=== PATIENT | male | born 1985 | race Caucasian/White ===

== ENCOUNTER → 2020-06-14 | Outpatient (CLI) | payer OTHER ==
[~2020-06-14] MED LIST: PROTONIX40 MG PO
[2020-06-14 10:37] LABS: HEMOGLOBIN 14.4 gm/dl (14.0-17.5); RED BLOOD COUNT 4.65 M/UL (4.20-5.50)
[2020-06-14 11:01] LABS: BUN/CREATININE RATIO 9 (0-10)
[2020-06-15 13:09] LABS: T3 UPTAKE 28 % (24-39)
== END ==
LOC: LAB 09:59
PROVIDERS: Registered Nurse Administrator
DX: Z51.81 Encounter for therapeutic drug level monitoring (principal); F31.9 Bipolar disorder, unspecified; Z79.899 Other long term (current) drug therapy
CPT/HCPCS: 36415; 80053; 80061; 80178; 83036; 84439; 84443; 84479; 84481; 85025

== ENCOUNTER 2020-07-28 20:42 | Emergency (ER) | payer OTHER ==
[2020-07-28 23:02] LABS: HEMOGLOBIN 15.1 gm/dl (14.0-17.5); RED BLOOD COUNT 4.82 M/UL (4.20-5.50); WHITE BLOOD COUNT 11.5 K/UL (4.5-11.0)
[2020-07-28 23:15] LABS: BUN/CREATININE RATIO 7 (0-10)
[2020-07-29 14:34] LABS: ACINETOBACTER BAUMANNII Not Detected (Negative); CANDIDA ALBICANS Not Detected (Negative); CANDIDA KRUSEI Not Detected (Negative); CANDIDA TROPICALIS Not Detected (Negative); ENTEROCOCCUS Not Detected (Negative); ESCHERICHIA COLI Not Detected (Negative); HAEMOPHILUS INFLUENZAE Not Detected (Negative); KLEBSIELLA OXYTOCA Not Detected (Negative); KLEBSIELLA PNEUMONIAE Not Detected (Negative); KPC-CARBAPENEM-RESISTANCE GENE Not Detected (Negative); PROTEUS Not Detected (Negative); PSEUDOMONAS AERUGINOSA Not Detected (Negative); SERRATIA MARCESANS Not Detected (Negative); STREP AGALACTIAE (GROUP B) Not Detected (Negative); STREP PYOGENES (GROUP A) Not Detected (Negative); STREPTOCOCCUS Not Detected (Negative); vanA/B (VANCOMYCIN RESIST GENE Not Detected (Negative)
[2020-07-29 15:59] LABS: STAPHYLOCOCCUS DETECTED (Negative); STAPHYLOCOCCUS AUREUS DETECTED (Negative); mecA (METHICILLIN RESIST GENE DETECTED (Negative)
== END 2020-07-29 04:04 | disposition home or self-care (01) ==
LOC: ER1 20:42
PROVIDERS: Physician Assistant
DX: L03.211 Cellulitis of face (principal); K13.0 Diseases of lips; I80.8 Phlebitis and thrombophlebitis of other sites; Z90.49 Acquired absence of other specified parts of digestive tract; F17.290 Nicotine dependence, other tobacco product, uncomplicated; R74.02 Elevation of levels of lactic acid dehydrogenase [LDH]
CPT/HCPCS: 70487; 80053; 83605; 85025; 87040; 87077; 87150; 87186; 96365; 96366; 96368; 96375; 99284; J2270; J2405; J2543; J3370; J7030; J7070; Q9967

== ENCOUNTER → 2020-08-09 | Outpatient (CLI) | payer OTHER ==
[2020-08-09 09:44] LABS: HEMOGLOBIN 13.8 gm/dl (14.0-17.5); RED BLOOD COUNT 4.49 M/UL (4.20-5.50); WHITE BLOOD COUNT 7.6 K/UL (4.5-11.0)
[2020-08-09 10:14] LABS: BUN/CREATININE RATIO 8 (0-10)
== END ==
LOC: OPSV 08:00
DX: Z45.2 Encounter for adjustment and management of vascular access device (principal); A49.02 Methicillin resistant Staphylococcus aureus infection, unspecified site; R78.81 Bacteremia
CPT/HCPCS: 80053; 82550; 85027; 86140

== ENCOUNTER → 2020-08-16 | Outpatient (CLI) | payer OTHER ==
[2020-08-16 14:35] LABS: HEMOGLOBIN 13.5 gm/dl (14.0-17.5); RED BLOOD COUNT 4.43 M/UL (4.20-5.50); WHITE BLOOD COUNT 5.7 K/UL (4.5-11.0)
[2020-08-16 15:02] LABS: BUN/CREATININE RATIO 6 (0-10)
== END ==
LOC: OPSV 12:00
PROVIDERS: Hospitalist
DX: R78.81 Bacteremia (principal); B95.62 Methicillin resistant Staphylococcus aureus infection as the cause of diseases classified elsewhere; Z45.2 Encounter for adjustment and management of vascular access device
CPT/HCPCS: 80053; 82550; 85027; 86140

== ENCOUNTER → 2020-08-25 | Outpatient (CLI) | payer OTHER ==
[2020-08-25 12:25] LABS: HEMOGLOBIN 13.9 gm/dl (14.0-17.5); RED BLOOD COUNT 4.58 M/UL (4.20-5.50); WHITE BLOOD COUNT 6.5 K/UL (4.5-11.0)
[2020-08-25 13:27] LABS: BUN/CREATININE RATIO 8 (0-10)
== END ==
LOC: OPSV 08-23 12:00
PROVIDERS: Hospitalist
DX: A49.02 Methicillin resistant Staphylococcus aureus infection, unspecified site (principal); R78.81 Bacteremia
CPT/HCPCS: 36415; 80053; 82550; 85027; 86140

== ENCOUNTER 2020-08-28 19:56 | Emergency (ER) | payer OTHER ==
[2020-08-28 23:48] LABS: HEMOGLOBIN 14.3 gm/dl (14.0-17.5); RED BLOOD COUNT 4.65 M/UL (4.20-5.50); WHITE BLOOD COUNT 13.1 K/UL (4.5-11.0)
[2020-08-29] LABS: BUN/CREATININE RATIO 7 (0-10)
[2020-08-29 14:07] LABS: ACINETOBACTER BAUMANNII Not Detected (Negative); CANDIDA ALBICANS Not Detected (Negative); CANDIDA KRUSEI Not Detected (Negative); CANDIDA TROPICALIS Not Detected (Negative); ENTEROCOCCUS Not Detected (Negative); ESCHERICHIA COLI Not Detected (Negative); HAEMOPHILUS INFLUENZAE Not Detected (Negative); KLEBSIELLA OXYTOCA Not Detected (Negative); KLEBSIELLA PNEUMONIAE Not Detected (Negative); KPC-CARBAPENEM-RESISTANCE GENE Not Detected (Negative); PROTEUS Not Detected (Negative); PSEUDOMONAS AERUGINOSA Not Detected (Negative); SERRATIA MARCESANS Not Detected (Negative); STAPHYLOCOCCUS Not Detected (Negative); STAPHYLOCOCCUS AUREUS Not Detected (Negative); STREP AGALACTIAE (GROUP B) Not Detected (Negative); STREP PYOGENES (GROUP A) Not Detected (Negative); STREPTOCOCCUS Not Detected (Negative); mecA (METHICILLIN RESIST GENE Not Detected (Negative); vanA/B (VANCOMYCIN RESIST GENE Not Detected (Negative)
== END 2020-08-29 04:54 | disposition admitted as inpatient to this hospital (09) ==
LOC: ER1 19:56
PROVIDERS: Family Medicine
DX: A41.9 Sepsis, unspecified organism (principal); J18.9 Pneumonia, unspecified organism; I82.621 Acute embolism and thrombosis of deep veins of right upper extremity; I82.B11 Acute embolism and thrombosis of right subclavian vein; I82.A11 Acute embolism and thrombosis of right axillary vein; F17.290 Nicotine dependence, other tobacco product, uncomplicated
CPT/HCPCS: 71045; 73202; 80053; 81001; 83605; 83735; 84100; 85025; 87040; 87077; 87086; 87150; 87186; 96372; 96374; 99285; J1650; J2543; Q9967

== ENCOUNTER 2020-12-15 17:38 | Emergency (ER) | payer OTHER ==
[2020-12-15 20:06] LABS: HEMOGLOBIN 15.8 gm/dl (14.0-17.5); RED BLOOD COUNT 5.11 M/UL (4.20-5.50)
[2020-12-15 20:27] LABS: BUN/CREATININE RATIO 9 (0-10)
== END 2020-12-15 20:35 | disposition home or self-care (01) ==
LOC: ER1 17:38
PROVIDERS: Physician Assistant
DX: M79.604 Pain in right leg (principal); R07.9 Chest pain, unspecified; I10 Essential (primary) hypertension; Z86.718 Personal history of other venous thrombosis and embolism; F17.290 Nicotine dependence, other tobacco product, uncomplicated; Z88.8 Allergy status to other drugs, medicaments and biological substances
CPT/HCPCS: 71045; 80053; 85025; 85379; 85610; 85730; 99285

== ENCOUNTER → 2020-12-17 | Outpatient (CLI) | payer OTHER | LOC: US 14:15 | DX: M79.604 Pain in right leg (principal) | CPT/HCPCS: 93971 ==

== ENCOUNTER 2021-04-04 19:38 | Emergency (ER) | payer OTHER ==
[2021-04-04 21:00] LABS: HEMOGLOBIN 15.5 gm/dl (14.0-17.5); RED BLOOD COUNT 4.87 M/UL (4.20-5.50); WHITE BLOOD COUNT 5.1 K/UL (4.5-11.0)
[2021-04-04 21:35] LABS: BUN/CREATININE RATIO 24 (0-10)
== END 2021-04-05 02:45 | disposition short-term general hospital (02) ==
LOC: ER1 19:38
PROVIDERS: Emergency Medicine
DX: U07.1 COVID-19 (principal); I63.9 Cerebral infarction, unspecified
CPT/HCPCS: 36415; 70450; 80053; 80178; 80307; 82140; 82550; 82553; 83605; 83735; 83874; 84484; 85025; 87040; 96374; 99285; G0480; J2060; U0002

== ENCOUNTER → 2021-10-20 | Outpatient (CLI) | payer OTHER ==
[~2021-10-20] MED LIST changes: +AMOX TR-K CLV1 EAC4 PO; +IBUPROFEN800 MG PO
== END ==
LOC: RAD 15:13
DX: M54.2 Cervicalgia (principal); M54.6 Pain in thoracic spine; M54.50 Low back pain, unspecified; R05.9 Cough, unspecified; M79.643 Pain in unspecified hand; M47.816 Spondylosis without myelopathy or radiculopathy, lumbar region
CPT/HCPCS: 71046; 72050; 72072; 72100; 73130